=== PATIENT | male | born 1955 | race Caucasian/White ===

== ENCOUNTER 2018-07-29 07:01 | Day surgery (SDC) | payer MEDICARE ==
[2018-07-29 07:20] VITALS: BMI 24.4
--- NOTE | 2018-07-29 08:16 | CP.SDSHP ---
Same Day Surgery H & P - History Proposed Procedure: COLONSCOPY Pre-Op Diagnosis: SEE NOTES - Previous Medical/Surgical History Misc: Other Pain: 4.Moderate Pain - Allergies Allergies: Allergies No Known Allergies Allergy (Verified 07/29/18 07:20) - Physical Exam General Appearance: N Vital Signs: Vital Signs 07/29/18 07:21 Temperature 97.6 F Pulse Rate 80 Respiratory 17 Rate Blood Pressure 128/86 O2 Sat by Pulse 99 Oximetry Mental Status: Alert & Oriented x3 Neuro: WNL Heart: WNL Lungs: WNL GI: Other - {Optional Preform as Required} Breast: WNL Abdomen: Other Rectal: Other Integument: WNL : WNL Ortho: WNL ENT: WNL - Impression Pt. Evaluated Today:Candidate for Anesthesia & Procedure: Yes - Date & Time Time: 08:15 Short Stay Discharge - Short Stay Discharge Admitting Diagnosis/Reason for Visit: IRRITABLE BOWEL SYNDROME Disposition: HOME/ ROUTINE
[2018-07-29] MEDS ORDERED: Midazolam 2 MG/2 ML VIAL ONE (08:20)
[2018-07-29] MEDS ORDERED: Propofol 10 mg/ml Inj (20 ML) ONE (08:20)
[2018-07-29] MEDS ORDERED: Lidocaine Hydrochloride 5 ML INJ ONE (08:21)
[2018-07-29] MEDS ORDERED: Glucagon Recombinant 1 mg Inj ONE (08:28)
[2018-07-29] MEDS ORDERED: Belladonna-Phenobarbital PO ONE (09:00)
[2018-07-29 10:00] VITALS: TEMP 97
[2018-07-29 10:02] VITALS: O2SAT 99
[2018-07-29 10:08] VITALS: BP 115/78; PULSE 67; RESP 20
== END 2018-07-29 10:05 | disposition home or self-care (01) ==
LOC: C.ENDO 07:01
PROVIDERS: ATTEND Specialist
DX: K63.3 Ulcer of intestine (principal); K58.9 Irritable bowel syndrome, unspecified; K64.8 Other hemorrhoids; K64.4 Residual hemorrhoidal skin tags
CPT/HCPCS: 45380; 88305; J1610; J2250; J2704